=== PATIENT | female | born 1955 | race Caucasian/White ===

== ENCOUNTER 2017-09-14 20:24 | Inpatient (IN) | payer OTHER ==
[~2017-09-14] VITALS: Ht 160 cm; Wt 79.4 kg
[~2017-09-14 20:24] MED LIST: ACYCLOVIR 800 MG PO; OMEPRAZOLE10 MG; SYNTHROID50 MCG; Synthroid PO
== END 2017-09-17 12:45 | disposition home or self-care (01) | DRG 419 ==
LOC: ER 20:24 → SEC-K 09-15 09:08 → SURH 09-15 09:08
PROVIDERS: Surgery
PROC: 0FT44ZZ Resection of Gallbladder, Percutaneous Endoscopic Approach (ICD-10-PCS; principal; 2017-09-15 10:00)
DX: K80.00 Calculus of gallbladder with acute cholecystitis without obstruction (principal)

== ENCOUNTER 2018-05-15 22:53 | Emergency (ER) | payer OTHER ==
[~2018-05-15] VITALS: Ht 160 cm; Wt 81.6 kg
[2018-05-16] MEDS ORDERED: CIPRO500 MG PO (11:08)
[2018-05-16] MEDS ORDERED: INTESTINEX680 M1 PO (11:08)
[2018-05-16] MEDS ORDERED: ULTRACET PO (11:08)
[2018-05-16] MEDS ORDERED: FLAGYL500MG PO (11:08)
[2018-05-16] MEDS ORDERED: KETO10TA2 PO (11:08)
== END 2018-05-16 11:52 | disposition home or self-care (01) ==
LOC: ER 22:53
DX: K57.92 Diverticulitis of intestine, part unspecified, without perforation or abscess without bleeding (principal); R10.32 Left lower quadrant pain

== ENCOUNTER 2021-01-07 09:57 | Emergency (ER) | payer OTHER ==
[~2021-01-07] VITALS: Ht 160 cm; Wt 81.6 kg
[~2021-01-07 09:57] MED LIST changes: +CIPRO500 MG PO; +FLAGYL500MG PO; +INTESTINEX680 M1 PO; +KETO10TA2 PO; +ULTRACET PO
[2021-01-07] MEDS ORDERED: PROTONIX40 MG PO (10:09)
== END 2021-01-07 14:33 | disposition home or self-care (01) ==
LOC: ER 09:57
DX: R20.0 Anesthesia of skin (principal)